=== PATIENT | female | born 1965 | race Caucasian/White ===

== ENCOUNTER 2016-10-19 05:28 | Day surgery (SDC) | payer OTHER ==
[2016-10-11 09:59] VITALS: BMI 30.5
[2016-10-19] VITALS (18 sets, daily range): BP systolic 119–163; BP diastolic 64–100; PULSE 62–100; RESP 13–21; Ht 149.9 cm; Wt 94.5 kg
[~2016-10-19] VITALS: Ht 149.9 cm; Wt 94.5 kg
--- NOTE | 2016-10-19 06:45 | RADRPT ---
PROCEDURE: XR Chest. CLINICAL INDICATION: Preop TECHNIQUE: A single AP view of the chest was obtained. COMPARISON: None. FINDINGS: No focal airspace opacification, pleural effusion or pneumothorax is seen. The cardiomediastinal si lhouette is within normal limits for size. The osseous structures are unremarkable. IMPRESSION: No radiographic evidence of acute cardiopulmonary disease. RPTAT: HH .Nicole Anthony MD, MD Date Time Electronically viewed and signed by .Nicole Anthony MD, on 10/19/2016 06:45 .G/
[2016-10-19] MEDS ORDERED: FENTAnyl 50 MCG/ML VIAL ONE ×2 (07:26→07:54)
[2016-10-19] MEDS ORDERED: PROPOFOL 100 ML ONE (07:26)
[2016-10-19] MEDS ORDERED: BUPIVACAINE 0.25% (MPF) 30 ML INJ INJ ONE (07:51)
[2016-10-19] MEDS ORDERED: ONDANSETRON 4 MG INJ ONE (07:57)
[2016-10-19] MEDS ORDERED: ROCURONIUM 50 MG INJ ONE ×2 (07:57→08:26)
[2016-10-19] MEDS ORDERED: LIDOCAINE 2% (SDV) 5 ML INJ ONE (07:57)
[2016-10-19] MEDS ORDERED: DEXAMETHASONE 4 MG/ML 1 ML INJ ONE (07:57)
[2016-10-19] MEDS ORDERED: morphine 2 MG INJ IV PRN (08:30)
[2016-10-19] MEDS ORDERED: ONDANSETRON 4 MG INJ IV PRN ×2 (08:30→09:00)
[2016-10-19] MEDS ORDERED: OXYCODONE/ACETAMINOPHEN (5/325) TAB PO PRN ×2 (08:30)
[2016-10-19] MEDS ORDERED: hydrALAzine 20 MG INJ IV PRN (09:00)
[2016-10-19] MEDS ORDERED: MEPERIDINE 25 MG INJ IV PRN (09:00)
[2016-10-19] MEDS ORDERED: EPHEDrine SULFATE 50 MG/5 ML SYG IV PRN (09:00)
[2016-10-19] MEDS ORDERED: LABETALOL HCL 20MG INJ IV PRN (09:00)
[2016-10-19] MEDS ORDERED: DIPHENHYDRAMINE 50 MG INJ IV PRN (09:00)
[2016-10-19] MEDS ORDERED: FENTAnyl 50 MCG/ML VIAL IV PRN ×3 (09:00)
[2016-10-19] MEDS ORDERED: HYDROmorphONE (0.2 MG/ML) 10ML SYG IV PRN ×3 (09:00)
--- NOTE | 2016-10-19 09:48 | OPR ---
DATE OF OPERATION: 10/19/2016 PREOPERATIVE DIAGNOSIS: Right lower quadrant ventral hernia. OPERATION PERFORMED: 1. Repair with medium Ventralex patch. 2. Partial omentectomy. SURGEON: Gonzalo Guy MD ANESTHESIA: General. OPERATIVE REPORT: After satisfactory general anesthesia was achieved, the abdomen was prepped and d raped in the usual fashion. A transverse incision was made spanning the right lower quadrant and ca rried down to the level of the sac. The sac was dissected circumferentially to a fascial defect whi ch measured 4 cm. The sac was excised at the fascial level. Incarcerated within the sac was omentu m. The omentum was divided over Pean clamps, excised and submitted. The clamps were tied with 0 Vi cryl. Next a medium Ventralex patch was placed below the fascial defect as an underlay. It was anc hored to healthy fascia via its mesh straps utilizing interrupted 2-0 Novafil suture. Redundant str aps were excised and discarded. The resultant repair was a tension-free underlay repair. The right edge of the fascial defect was attenuated. This was brought together with a single suture of #2 Vi cryl. The wound was then infiltrated with 30 mL of 0.25% plain Marcaine. The skin was then closed with billy. OPERATIVE BLOOD LOSS: Approximately 20 to 30 mL. Sponge and needle counts were reported as correct x2. The patient tolerated the procedure well and without incident or complication. Dictated By: GONZALO OLIVO/PILY Conf#: [id number] DID#: [id number]
== END 2016-10-19 10:59 | disposition home or self-care (01) ==
LOC: SDS 05:28
PROVIDERS: ATTEND Surgery
DX: K43.9 Ventral hernia without obstruction or gangrene (principal)
CPT/HCPCS: 49560; 49568; 71010; 88304; C1781; J1100; J1170; J2175; J2405; J3010; Z7512; Z7610